=== PATIENT | male | born 1955 | race Caucasian/White ===

== ENCOUNTER 2019-09-01 15:30 | Emergency (ER) | payer OTHER | END 2019-09-01 18:13 | disposition left against medical advice (07) | LOC: ED 15:30 | DX: Z53.21 Procedure and treatment not carried out due to patient leaving prior to being seen by health care provider (principal) ==

== ENCOUNTER 2020-01-07 00:48 | Emergency (ER) | payer OTHER ==
[~2020-01-07] VITALS: Ht 172.7 cm; Wt 97.5 kg
[2020-01-07 00:57] VITALS: Ht 172.7 cm; Wt 97.5 kg
[2020-01-07 02:00] LABS: CALCIUM 9.2 mg/dL (8.5-10.1); CARBON DIOXIDE 28.5 mmol/L (21-32); CHLORIDE SERUM 104 mmol/L (98-107); CREATININE SERUM 1.2 mg/dL (0.7-1.3); GFR1 > 60 mL/min; GLUCOSE SERUM 180 mg/dL (74-106); POTASSIUM SERUM 3.8 mmol/L (3.5-5.1); SODIUM SERUM 139 mmol/L (136-145)
[2020-01-07 02:02] LABS: BASOPHIL % 0.4 % (0-2); PLATELET COUNT 205 x10^3mcL (130-400); RED CELL DISTRIBUTION WIDTH 13.9 % (11.5-14.5)
[2020-01-07 02:05] LABS: ALBUMIN 3.9 g/dL (3.4-5.0); ALKALINE PHOSPHATASE 67 U/L (46-116); ALT/SGPT 33 U/L (16-63); AMYLASE 40 U/L (25-115); AST/SGOT 19 U/L (15-37); BILIRUBIN TOTAL 0.44 mg/dL (0.20-1.00); LIPASE 106 IU/L (73-393); TOTAL PROTEIN, SERUM 7.7 g/dL (6.4-8.2)
[2020-01-07 03:44] VITALS: BP 140/80
== END 2020-01-07 03:44 | disposition home or self-care (01) ==
LOC: ED 00:48
PROVIDERS: Specialist
DX: K80.50 Calculus of bile duct without cholangitis or cholecystitis without obstruction (principal); I10 Essential (primary) hypertension; E11.9 Type 2 diabetes mellitus without complications; Z87.19 Personal history of other diseases of the digestive system
CPT/HCPCS: J1885; J2270; J2405; J3010; J7030